=== PATIENT | female | born 1960 | race Caucasian/White ===

== ENCOUNTER 2017-11-22 14:52 | Emergency (ER) | payer BC ==
[~2017-11-22] VITALS: Ht 167.6 cm; Wt 79.4 kg
[~2017-11-22 14:52] MED LIST: ALBU3IS; ALBU3IS INH; ALPR1; AMLO5 PO; BECLNI16.8; BENTYL10 MG; BUDE6HFA PO; CALCIT950 PO; CHOL10002 PO; CRESEMBA186 MG PO; CYCL0.05OP; CYCL25 PO; Cinnamon500 MG; DHEA PO; Dazidox10 MG PO; FOLI1 PO; HYDMOR2 PO; IODINE PO; LAMI150 PO; LEVO750 PO; METF500 PO; METO25ER; MULVITMIND PO; Mucinex600 MG PO; NYST100SU SS; ONDA4ODT MM; OXYACE5T PO; OXYC1TAB11 PO; OXYC5; PARO20; PRED10; PRED10 PO; PROM25 PO; Percocet 5-3251 EACH PO; Prilosec Otc20 MG; THYR60 PO; UBID100 PO; URSO300; WILD YAM PO; Zofran Odt4 MG PO; Zofran Odt4 MG SL
[2017-11-22 15:32] LABS: BASOPHILS ABSOLUTE AUTO 0.03 K/mm3 (0.00-0.23); BASOPHILS PERCENT AUTO 0 % (0-2); EOSINOPHILS ABSOLUTE AUTO 0.16 K/mm3 (0.00-0.68); EOSINOPHILS PERCENT AUTO 1 % (0-6); Hematocrit 45.2 % (33.0-51.0); Hemoglobin 14.8 g/dL (11.5-16.0); IMMATURE GRAN ABSOLUTE AUTO 0.17 K/mm3 (0.00-0.10); IMMATURE GRAN PERCENT AUTO 1 % (0-1); LYMPHOCYTES ABSOLUTE AUTO 1.88 K/mm3 (0.84-5.20); LYMPHOCYTES PERCENT AUTO 8 % (21-46); MONOCYTES ABSOLUTE AUTO 1.93 K/mm3 (0.16-1.47); MONOCYTES PERCENT AUTO 8 % (4-13); Mean Corpuscular HGB 31.7 pg (26.0-34.0); Mean Corpuscular HGB Conc 32.7 g/dL (31.5-36.5); Mean Corpuscular Volume 97 fL (80-100); Mean Platelet Volume 10.3 fL (9.1-12.4); NEUTROPHILS ABSOLUTE AUTO 19.07 K/mm3 (1.96-9.15); NEUTROPHILS PERCENT AUTO 82 % (41-73); Platelet Count 239 K/mm3 (150-400); RDW Coefficient Variation 16.7 % (11.7-14.2); Red Blood Cell Count 4.67 M/mm3 (3.80-5.20); White Blood Cell Count 23.24 K/mm3 (4.00-11.30)
[2017-11-22 15:48] LABS: Albumin, Blood 2.7 g/dL (3.4-5.0); Albumin/Globulin Ratio 0.8 (0.8-1.8); Bilirubin, Total 1.5 mg/dL (0.1-1.0); Bun/Creatinine Ratio 30.1 (12.0-20.0); Calcium, Blood 8.3 mg/dL (8.5-10.1); Creatinine, Blood 1.03 mg/dL (0.40-1.00); Globulin, Blood 3.2 g/dL (2.2-4.0); Potassium, Blood 4.6 mmol/L (3.5-5.5); Total Protein, Blood 5.9 g/dL (6.4-8.2)
[2017-11-22] MEDS ORDERED: NOXAFIL100 MG PO (16:10)
[2017-11-22] MEDS ORDERED: CEFD300 PO (16:10)
[2017-11-22] MEDS ORDERED: SULFATRIM 800-120 ML PO (16:10)
[2017-11-22] MEDS ORDERED: Roxicodone5 MG PO (17:42)
[2017-11-22 18:42] LABS: Source, Urine Clean Catch
[2017-11-22 18:46] LABS: Bilirubin, Urine Neg (Neg); Blood, Urine 1+ (Neg); Glucose Qualitative, Urine 4+ (Neg); Ketones, Urine Neg (Neg); Leukocyte Esterase, Urine Neg (Neg); Nitrite, Urine Neg (Neg); Protein, Urine 1+ (Neg); Urobilinogen, Urine NORM (Normal)
[2017-11-22 19:22] LABS: Appearance, Urine Clear (Clear); Color, Urine Yellow (P-Yellow)
[2017-11-22 19:25] LABS: White Blood Cells, Urine Not Seen /hpf (0-5)
[2017-11-22 19:26] LABS: Bacteria Not Seen /hpf; Red Blood Cells, Urine 0-2 /hpf (0-2); Squamous Epithelial Cells Few /hpf (Few)
== END 2017-11-22 18:43 | disposition home or self-care (01) ==
LOC: ER 14:52
PROVIDERS: Emergency Medicine
DX: J06.9 Acute upper respiratory infection, unspecified (principal); E86.0 Dehydration; R30.0 Dysuria; C95.90 Leukemia, unspecified not having achieved remission; Z85.3 Personal history of malignant neoplasm of breast; Z90.12 Acquired absence of left breast and nipple; Z79.899 Other long term (current) drug therapy; Z79.82 Long term (current) use of aspirin
CPT/HCPCS: 36415; 71046; 80053; 81001; 85025; 93005; 93010; 96360; 96361; 99283; J7030

== ENCOUNTER 2018-12-02 09:36 | Inpatient (IN) | payer BC ==
[~2018-12-02] VITALS: Ht 167.6 cm; Wt 92.3 kg
[~2018-12-02 09:36] MED LIST changes: +CEFD300 PO; +NOXAFIL100 MG PO; +Roxicodone5 MG PO; +SULFATRIM 800-120 ML PO
[2018-12-02 11:06] LABS: Hematocrit 53.9 % (33.0-51.0); Hemoglobin 16.9 g/dL (11.5-16.0); Mean Corpuscular HGB 33.5 pg (26.0-34.0); Mean Corpuscular HGB Conc 31.4 g/dL (31.5-36.5); Mean Platelet Volume 9.6 fL (9.1-12.4); Platelet Count 268 K/mm3 (150-400); RDW Coefficient Variation 14.7 % (11.7-14.2); RDW Standard Deviation 58.9 fL (35.1-46.3); Red Blood Cell Count 5.05 M/mm3 (3.80-5.20); White Blood Cell Count 17.71 K/mm3 (4.00-11.30)
[2018-12-02 11:11] LABS: Mean Corpuscular Volume 107 fL (80-100)
[2018-12-02 11:15] LABS: Troponin I 0.172 ng/mL (0.000-0.040)
[2018-12-02 11:27] LABS: BAND PERCENT MAN 1 % (0-8); BASOPHILS PERCENT MAN 0 % (0-2); EOSINOPHILS ABSOLUTE MAN 0.35 K/mm3 (0.00-0.68); EOSINOPHILS PERCENT MAN 2 % (0-6); LYMPHOCYTES % ATYPICAL MANUAL 8 % (0-0); LYMPHOCYTES ABSOLUTE MAN 5.31 K/mm3 (0.84-5.20); LYMPHOCYTES PERCENT MAN 22 % (21-46); MONOCYTES ABSOLUTE MAN 2.65 K/mm3 (0.16-1.47); MONOCYTES PERCENT MAN 15 % (4-13); NEUTROPHILS ABSOLUTE MAN 9.38 K/mm3 (1.96-9.15); SEG NEUTROPHILS PERCENT MAN 52 % (41-73); TOTAL CELLS COUNTED 100
[2018-12-02 11:41] LABS: Albumin, Blood 2.8 g/dL (3.4-5.0); Albumin/Globulin Ratio 0.8 (0.8-1.8); Bilirubin, Total 0.5 mg/dL (0.1-1.0); Bun/Creatinine Ratio 29.9 (12.0-20.0); Calcium, Blood 8.6 mg/dL (8.5-10.1); Creatinine, Blood 1.07 mg/dL (0.40-1.00); Globulin, Blood 3.6 g/dL (2.2-4.0); Potassium, Blood 4.2 mmol/L (3.5-5.5); Total Protein, Blood 6.4 g/dL (6.4-8.2)
[2018-12-02 11:49] LABS: International Normalized Ratio 0.93; Prothrombin Time Results 9.9 Sec (9.7-11.5)
--- NOTE | 2018-12-02 20:02 | NUR ---
ADMIT NOTE/SHIFT SUMMARY RECEIVED REPORT FROM ALLISON LEE RN IN ED. PT TO ROOM AT 1346 VIA GURNEY, SBA TO BED. PT ORIENTED TO ROOM AND CALL LIGHT SYSTEM. PT EDUCATED ON FALL RISK AND NEED TO CALL FOR ASSISTANCE. BED IN LOW, CALL LIGHT IN REACH AND BED ALARM ON. PT REPORTS CHEST PAIN STARTED YESTERDAY EVENING WITH PAIN RADIATING TO JAW AND ARMS WITH SOB. PT HAS HX OF BREAST CANCER, LEUKEMIA AND BONE MARROW TRANSPLANT. PT REPORTS RASH/RED AREA GRAFT VS HOST REACTION/DISEASE. PT A&OX4, CALM AND COOPERATIVE WITH CARE. PT RESTING IN BED, SBA TO BATHROOM WITH POLE. PT ON RA, DENIES SOB ON ADMISSION. PT DENIES CHEST PAIN. HR ELEVATED, SINUS TACH IN TELE. ELEVATED TROP NOTED. BP RIGHT ARM ONLY. PT REPORTS HEADACHE AND BILATERAL ARM PAIN, MEDICATED PER EMAR WITH POSITIVE RESULTS. RECTAL SWAB COLLECTED PER PROTOCOL TO CLEAR FROM ISO FOR MDRO IN SPUTUM. NS START AT 100ML/HR PER ORDERS. OTHER VSS. NO OTHER ACUTE CHANGES NOTED DURING SHIFT. REPORT GIVEN TO ONCOMING RN.
--- NOTE | 2018-12-02 20:13 | NUR ---
LATE ENTRY 1640 PT REPORTS HEADACHE AND BILATERAL ARM PAIN, DR SHAH NOTIFIED, NEW ORDERS FOR HOME OXYCODINE 5-10 MG Q4H PRN FOR PAIN AND PT OK TO HAVE REGULAR DIET THIS EVENING AND BREAKFAST, NPO FOR STRESS TESTAFTER BREAKFAST.
[2018-12-02] MEDS ORDERED: AMIT25 PO (21:42)
[2018-12-02] MEDS ORDERED: ZOLP10 PO (21:43)
[2018-12-03 02:56] LABS: BASOPHILS ABSOLUTE AUTO 0.03 K/mm3 (0.00-0.23); BASOPHILS PERCENT AUTO 0 % (0-2); EOSINOPHILS ABSOLUTE AUTO 0.23 K/mm3 (0.00-0.68); EOSINOPHILS PERCENT AUTO 2 % (0-6); Hematocrit 47.4 % (33.0-51.0); IMMATURE GRAN ABSOLUTE AUTO 0.05 K/mm3 (0.00-0.10); IMMATURE GRAN PERCENT AUTO 1 % (0-1); LYMPHOCYTES ABSOLUTE AUTO 2.63 K/mm3 (0.84-5.20); LYMPHOCYTES PERCENT AUTO 24 % (21-46); MONOCYTES ABSOLUTE AUTO 1.36 K/mm3 (0.16-1.47); MONOCYTES PERCENT AUTO 12 % (4-13); Mean Corpuscular HGB 33.2 pg (26.0-34.0); Mean Corpuscular HGB Conc 31.6 g/dL (31.5-36.5); Mean Corpuscular Volume 105 fL (80-100); Mean Platelet Volume 9.4 fL (9.1-12.4); NEUTROPHILS ABSOLUTE AUTO 6.69 K/mm3 (1.96-9.15); NEUTROPHILS PERCENT AUTO 61 % (41-73); Platelet Count 219 K/mm3 (150-400); RDW Coefficient Variation 14.6 % (11.7-14.2); RDW Standard Deviation 57.1 fL (35.1-46.3); Red Blood Cell Count 4.52 M/mm3 (3.80-5.20); White Blood Cell Count 10.99 K/mm3 (4.00-11.30)
[2018-12-03 03:20] LABS: Anion Gap 9 mmol/L (6-16); Blood Urea Nitrogen 21 mg/dL (8-24); Bun/Creatinine Ratio 21.1 (12.0-20.0); CO2, Blood 26 mmol/L (21-32); Calcium, Blood 7.7 mg/dL (8.5-10.1); Chloride, Blood 104 mmol/L (98-108); Cholesterol 257 mg/dL (50-200); Glomerular Filtration Rate >60 (60-); Glucose, Blood 133 mg/dL (70-99); Potassium, Blood 3.8 mmol/L (3.5-5.5); Sodium, Blood 139 mmol/L (136-145); Troponin I 0.185 ng/mL (0.000-0.040)
[2018-12-03 03:26] LABS: CHOL/HDL RATIO Unable to Calculate; LDL/HDL RATIO Unable to Calculate; Low Density Lipoprotein Chol Unable to Calculate mg/dL (0-110); Triglycerides 1619 mg/dL (30-160); Very Low Density Lipoprot Chol Unable to Calculate mg/dL (6-32)
--- NOTE | 2018-12-03 04:10 | NUR ---
SHIFT SUMMARY PT LYING FOWLERS DURING SHIFT REPORT, VISITING WITH FAMILY. PT ADMITTED FOR CP AND CANCER. PER REPORT, PT C/O BACK PAIN RADIATING TO JAW AND DOWN BOTH ARMS; POSSIBLE REACTION TO BONE MARROW TX. TROPONIN'S SLIGHTLY ELEVATED, BUT TRENDING DOWN THIS AM. STRESS TEST TODAY, PT TO BE NPO AFTER BREAKFAST. IVF'S INFUSING PER EMAR. PT TO CALL FOR NEEDS; SBA TO BTHRM TO VOID. MEDICATED PER EMAR FOR C/O PAIN. C/O NAUSEA AT START OF SHIFT. RESOLVED WITH ZOFRAN. DENIED FURTHER NEEDS. CALL LT IN REACH.
--- NOTE | 2018-12-03 07:09 | NUR ---
Patient and family gave permission for me (nursing scheduler) to help with care today 12-03-18.
[2018-12-03] MEDS ORDERED: FOLI1 PO (12:16)
[2018-12-03] MEDS ORDERED: Bactrim Ds Tab1 EACH PO (12:17)
[2018-12-03] MEDS ORDERED: PARO20 PO (12:18)
[2018-12-03] MEDS ORDERED: ACYC800 PO (12:19)
[2018-12-03] MEDS ORDERED: Cinnamon500 MG PO (12:20)
[2018-12-03] MEDS ORDERED: Fish Oil 10001000 MG PO (12:20)
[2018-12-03] MEDS ORDERED: ZINC15 PO (12:20)
--- NOTE | 2018-12-03 12:30 | NUR ---
This PT gave me permission to assist with their care on 12/04/2018.
--- NOTE | 2018-12-03 17:55 | NUR ---
SHIFT SUMMARY PT A&Ox4. CALM AND COOPERATIVE WITH CARE, AT TIMES PT IS ANXIOUS. PT RESTING IN BED, CALLS FOR ASSIST WITH SBA TO BATHROOM. PT REPORTS HEADACHE AND PAIN "EVERYWHERE", MEDICATED PER EMAR WITH POSITIVE RESULTS. PT NAUSEAS AND HAD 2 EPISODES OF GREEN EMESIS, DR SHAH NOTIFIED, MEDICATED X2 WITH ZOFRAN WITH POSITIVE WITH RESULTS. PT DENIES SOB. NEW DIAGNOSIS OF DIABETES, DR SHAH DISCUSSED WITH PATIENT, THIS RN CONTINUED TO EDUCATE PT AND PROVIDE SUPPORT. PT STARTED ON LOW SLIDING SCALE INSULIN WITH GLUCOSE CHECKS AC/HS, NO COVERAGE DURING SHIFT. VSS. NO OTHER ACUTE CHANGES NOTED DURING SHIFT. WILL CONTINUE TO MONITOR UNTIL REPORT GIVEN TO ONCOMING RN.
--- NOTE | 2018-12-04 04:04 | NUR ---
PT NPO AT [facility]. 2ND PART OF STRESS TEST TO BE DONE THIS AM. NO C/O CP SOB. PAIN MEDICATED PER EMAR. PT SLEPT THROUGH THE NIGHT. CALL LIGHT IN REACH
--- NOTE | 2018-12-04 18:37 | NUR ---
PT DISCHARGED VIA W/C POV WITH FRIEND AGAINST MEDICAL ADVICE. DR. SHAH AWARE OF PATIENT LEAVING AMA. PT ENCOURAGED TO STAY TO CONTINUE MEDICAL TREATMENT BUT REFUSED. IV DISCONTINUED INTACT. DR. SHAH FAXED NEW MEDICATION (DILTIAZEM) TO PT'S STATED PHARMACY.
--- NOTE | 2018-12-05 03:09 | NUR ---
I appologized to pt about the two hour over rounds, told her i made a mistake. she hopefully feels more rested
--- NOTE | 2018-12-05 07:29 | NUR ---
SHIFT SUMMARY A/O C/O PAIN IN LEGS AND MEDICATED PER EMAR. DENIED N/V. DENIED CP. INDEPENDENT TO BA. SHE WAS ABLE TO GET SOME SLEEP T/O NOC. FRIEND WITH HER AT BEDSIDE T/O NOC. CALL LIGHT IN REACH
--- NOTE | 2018-12-05 07:54 | NUR ---
ASSUMED CARE OF PT- BEDSIDE REPORT COMPLETE WITH NIGHT JESSICA DE LA GARZA, NO ORDER FOR CARDIOLOGY CONSULT IN THE CHART, SPOKE TO DR SHAH, PLACED THE ORDER AND CALLED CONSULT. PT ISOLATION R/O LAST NIGHT PER REPORT FROM NIGHT JESSICA DE LA GARZA. PT PLANNS TO TAKE A SHOWER FIRST THING; FAMILY PRESENT FOR BEDSIDE REPORT; PT ALERT, ORIENTED AND INDEPENDENT IN THE ROOM.
[2018-12-05 11:04] LABS: Cholesterol 294 mg/dL (50-200); Triglycerides 635 mg/dL (30-160)
--- NOTE | 2018-12-05 15:22 | NUR ---
*LATE ENTRY* PT SENT TO HC FOR ANGIO WILL TRANSFER TO PCU POST ANGIOGRAM. SPOKE TO PHYSICIAN UNDERWRITER KETTY NO FURTHER QUESTIONS AT THIS TIME.
--- NOTE | 2018-12-05 17:50 | NUR ---
NURSING PCU DAYSHIFT SUMMARY: Assumed care of pt at approx 1330. Arrived from via bed accompanied by family and staff x2. Pt and family oriented to unit. R radial site w/TR band and wrist board in place. TR band recovered as per protocol, site remained stable w/no s/s of bleed or hematoma. Respiratory and cardiac status stable. Pt has ambulated in room w/o difficulty. Call light in reach, anticpating possible discharge home tomorrow. Pt/family deny any current needs or questions regarding plan of care, cont to monitor until rpt is given to NOC RN.
[2018-12-06 04:21] LABS: BASOPHILS ABSOLUTE AUTO 0.02 K/mm3 (0.00-0.23); BASOPHILS PERCENT AUTO 0 % (0-2); EOSINOPHILS ABSOLUTE AUTO 0.11 K/mm3 (0.00-0.68); EOSINOPHILS PERCENT AUTO 1 % (0-6); Hematocrit 45.5 % (33.0-51.0); Hemoglobin 14.5 g/dL (11.5-16.0); IMMATURE GRAN ABSOLUTE AUTO 0.01 K/mm3 (0.00-0.10); IMMATURE GRAN PERCENT AUTO 0 % (0-1); LYMPHOCYTES ABSOLUTE AUTO 2.37 K/mm3 (0.84-5.20); LYMPHOCYTES PERCENT AUTO 31 % (21-46); MONOCYTES ABSOLUTE AUTO 1.14 K/mm3 (0.16-1.47); MONOCYTES PERCENT AUTO 15 % (4-13); Mean Corpuscular HGB Conc 31.9 g/dL (31.5-36.5); Mean Corpuscular Volume 103 fL (80-100); Mean Platelet Volume 9.4 fL (9.1-12.4); NEUTROPHILS PERCENT AUTO 53 % (41-73); Platelet Count 255 K/mm3 (150-400); RDW Coefficient Variation 14.5 % (11.7-14.2); RDW Standard Deviation 55.3 fL (35.1-46.3); White Blood Cell Count 7.75 K/mm3 (4.00-11.30)
[2018-12-06 04:39] LABS: Bun/Creatinine Ratio 13.9 (12.0-20.0); Creatinine, Blood 1.08 mg/dL (0.40-1.00); Potassium, Blood 3.9 mmol/L (3.5-5.5)
--- NOTE | 2018-12-06 07:32 | NUR ---
SHIFT SUMMARY PATIENT PLEASENT AND COOPERATIVE THROUGHOUT THE NIGHT. PATIENT APPEARED TO SLEEP WELL LAST NIGHT. PATIENT'S RIGHT WRIST TR SITE HAS NO SIGNS OF BLEEDING OR HEMATOMA FORMATION. HOWEVER, PATIENT CONTINUES TO HAVE A BRUISE ON THE BACK OF HER RIGHT FORARM AND SOME SWELLING. ARMBOARD IN PLACE. PATIENT EDUCATED ON POST ANGIO ACTIVITY AND MOVEMENT RESTRICTIONS. FRIEND STAYED THE NIGHT AT THE BEDSIDE. PATIENT CURRRENTLY DENIES ANY NEEDS. REPORT GIVEN TO ONCOMING RN.
--- NOTE | 2018-12-06 09:00 | NUR ---
PT PLEASANT COOP A/O STATES READY GO HOME. SO0ME PAIN ON LEGS. USUALLY TAKES OXY 10'S. MED PER EMAR. H/R REG, NO MURMER NOTED. PER TELE: NSR AT 80. LUNGS CLEAR, RESP EASY, UNLABORED. ON R/A. BT HYPO. STATES LAST BM 5 DAYS. STARTED YEST ON MYRALAX. FEELS TODAY LIKELY. VOIDS PER BATHROOM. BED IN LOW POSITION, CALL LITE IN REACH CALLS APROP. RT ARM SOME SWOLLEN ON OUTSIDE. INSIDE ON RADIAL SIDE CDI. NO BLEEDIING, REDNESS, BLEEDING. LIGHTLY PAINFUL. DR ACEVES WAS NOTIFIED AND SAW PT. STATES WILL D/C.
[2018-12-06] MEDS ORDERED: ACET325 PO (12:58)
[2018-12-06] MEDS ORDERED: Aspir 8181 MG PO (12:58)
[2018-12-06] MEDS ORDERED: ATOR40TA PO (12:59)
[2018-12-06] MEDS ORDERED: FENO67 PO (13:00)
[2018-12-06] MEDS ORDERED: METO25 PO (13:01)
--- NOTE | 2018-12-06 14:25 | NUR ---
DISCHARGE REVIEWED WITH PT AND SISTER. MEDS AND INSTRUCTIONS VERBALIZED UNDERSTANDING. DISCUSSED RADIAL SITE CARE. PT SIGNED FORMS. IV PULLED INTACT, TELE REMOVED. TRANPORT OUT DOOR AT 1420
== END 2018-12-06 14:35 | disposition home or self-care (01) | DRG 280 ==
LOC: ER 09:36 → MEDS 09:37 → PCU 13:40 → MEDS 13:50 → PCU 12-05 13:50
PROVIDERS: Emergency Medicine; Internal Medicine Cardiovascular Disease; ADMIT Student in an Organized Health Care Education/Training Program
PROC: B2111ZZ Fluoroscopy of Multiple Coronary Arteries using Low Osmolar Contrast (ICD-10-PCS; principal; 2018-12-05)
DX: I25.10 Atherosclerotic heart disease of native coronary artery without angina pectoris (principal); I21.4 Non-ST elevation (NSTEMI) myocardial infarction; K85.90 Acute pancreatitis without necrosis or infection, unspecified; Z94.81 Bone marrow transplant status; C95.90 Leukemia, unspecified not having achieved remission; Z87.891 Personal history of nicotine dependence; G89.29 Other chronic pain; D75.1 Secondary polycythemia; E78.1 Pure hyperglyceridemia; Z79.84 Long term (current) use of oral hypoglycemic drugs; E78.5 Hyperlipidemia, unspecified; E78.2 Mixed hyperlipidemia; E78.00 Pure hypercholesterolemia, unspecified; N18.3 Chronic kidney disease, stage 3 (moderate); I12.9 Hypertensive chronic kidney disease with stage 1 through stage 4 chronic kidney disease, or unspecified chronic kidney disease; R74.8 Abnormal levels of other serum enzymes; E09.65 Drug or chemical induced diabetes mellitus with hyperglycemia; Z79.52 Long term (current) use of systemic steroids; D75.89 Other specified diseases of blood and blood-forming organs; E09.22 Drug or chemical induced diabetes mellitus with diabetic chronic kidney disease
CPT/HCPCS: 36415; 36416; 71045; 71260; 78452; 80048; 80053; 80061; 82465; 82947; 83036; 83690; 84478; 84484; 85025; 85610; 87081; 93005; 93010; 93017; 93306; 93458; 96374-59; 96375-59; 99152; 99153; 99285-25; A9500; C1769; C1894; J0706; J1170; J1644; J1650; J1815; J2250; J2405; J2785; J3010; J7030; Q9967

== ENCOUNTER 2019-01-26 16:04 | Inpatient (IN) | payer BC ==
[~2019-01-26] VITALS: Ht 167.6 cm; Wt 82.1 kg
[~2019-01-26 16:04] MED LIST changes: +ACET325 PO; +ACYC800 PO; +AMIT25 PO; +ATOR40TA PO; +Aspir 8181 MG PO; +Bactrim Ds Tab1 EACH PO; +Cinnamon500 MG PO; +FENO67 PO; +Fish Oil 10001000 MG PO; +METO25 PO; +PARO20 PO; +ZINC15 PO; +ZOLP10 PO
[2019-01-26 17:13] LABS: BASOPHILS ABSOLUTE AUTO 0.04 K/mm3 (0.00-0.23); BASOPHILS PERCENT AUTO 0 % (0-2); EOSINOPHILS ABSOLUTE AUTO 0.32 K/mm3 (0.00-0.68); EOSINOPHILS PERCENT AUTO 2 % (0-6); Hematocrit 54.7 % (33.0-51.0); Hemoglobin 17.8 g/dL (11.5-16.0); IMMATURE GRAN PERCENT AUTO 1 % (0-1); LYMPHOCYTES ABSOLUTE AUTO 5.99 K/mm3 (0.84-5.20); LYMPHOCYTES PERCENT AUTO 32 % (21-46); MONOCYTES ABSOLUTE AUTO 2.63 K/mm3 (0.16-1.47); MONOCYTES PERCENT AUTO 14 % (4-13); Mean Corpuscular HGB 32.4 pg (26.0-34.0); Mean Corpuscular HGB Conc 32.5 g/dL (31.5-36.5); Mean Corpuscular Volume 100 fL (80-100); Mean Platelet Volume 9.5 fL (9.1-12.4); NEUTROPHILS ABSOLUTE AUTO 9.59 K/mm3 (1.96-9.15); NEUTROPHILS PERCENT AUTO 51 % (41-73); Platelet Count 321 K/mm3 (150-400); RDW Coefficient Variation 14.5 % (11.7-14.2); RDW Standard Deviation 52.8 fL (35.1-46.3); White Blood Cell Count 18.67 K/mm3 (4.00-11.30)
[2019-01-26 17:30] LABS: Alanine Aminotransfer (ALT/SGP 57 U/L (12-78); Albumin, Blood 3.1 g/dL (3.4-5.0); Albumin/Globulin Ratio 0.9 (0.8-1.8); Alk Phos 113 U/L (50-136); Anion Gap 9 mmol/L (6-16); Aspartate Aminotrans (AST/SGOT 49 U/L (12-37); Bilirubin, Total 0.4 mg/dL (0.1-1.0); Blood Urea Nitrogen 35 mg/dL (8-24); CO2, Blood 24 mmol/L (21-32); Calcium, Blood 8.7 mg/dL (8.5-10.1); Chloride, Blood 105 mmol/L (98-108); Creatinine, Blood 1.06 mg/dL (0.40-1.00); Globulin, Blood 3.3 g/dL (2.2-4.0); Glomerular Filtration Rate 57 (60-); Glucose, Blood 217 mg/dL (70-99); Potassium, Blood 3.7 mmol/L (3.5-5.5); Sodium, Blood 138 mmol/L (136-145); Total Protein, Blood 6.4 g/dL (6.4-8.2); Troponin I <0.015 ng/mL (0.000-0.040)
[2019-01-26 20:57] LABS: Influenza A Negative (NEGATIVE); Influenza B Negative (NEGATIVE)
--- NOTE | 2019-01-26 22:55 | NUR ---
transfer report from JESSICA Miguel in ER on PT who finished outpt oral therapy for pneumonia ans still is weak and short of breath. will admit with tele monitor and continue antibiotic therapy to treat pneumonia. hx of breast cancer.
[2019-01-26 23:14] LABS: Source, Urine Clean Catch
[2019-01-26 23:17] LABS: Bilirubin, Urine Neg (Neg); Blood, Urine Neg (Neg); Glucose Qualitative, Urine Neg (Neg); Ketones, Urine Neg (Neg); Leukocyte Esterase, Urine 2+ (Neg); Nitrite, Urine Neg (Neg); Protein, Urine 2+ (Neg); Specific Gravity, Urine 1.025 (1.003-1.022); Urobilinogen, Urine NORM (Normal)
[2019-01-26 23:21] LABS: Appearance, Urine Clear (Clear); Color, Urine Yellow (P-Yellow)
[2019-01-26 23:23] LABS: Bacteria Mod /hpf; Red Blood Cells, Urine 0-2 /hpf (0-2); Squamous Epithelial Cells Few /hpf (Few)
--- NOTE | 2019-01-26 23:24 | NUR ---
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 full code. advanced directive material provided.
[2019-01-27 04:23] LABS: BASOPHILS ABSOLUTE AUTO 0.06 K/mm3 (0.00-0.23); BASOPHILS PERCENT AUTO 0 % (0-2); EOSINOPHILS ABSOLUTE AUTO 0.26 K/mm3 (0.00-0.68); EOSINOPHILS PERCENT AUTO 2 % (0-6); Hemoglobin 16.5 g/dL (11.5-16.0); IMMATURE GRAN ABSOLUTE AUTO 0.07 K/mm3 (0.00-0.10); IMMATURE GRAN PERCENT AUTO 1 % (0-1); LYMPHOCYTES ABSOLUTE AUTO 2.41 K/mm3 (0.84-5.20); LYMPHOCYTES PERCENT AUTO 17 % (21-46); MONOCYTES ABSOLUTE AUTO 2.27 K/mm3 (0.16-1.47); MONOCYTES PERCENT AUTO 16 % (4-13); Mean Corpuscular HGB 32.4 pg (26.0-34.0); Mean Corpuscular HGB Conc 29.8 g/dL (31.5-36.5); Mean Platelet Volume 9.5 fL (9.1-12.4); NEUTROPHILS ABSOLUTE AUTO 9.19 K/mm3 (1.96-9.15); NEUTROPHILS PERCENT AUTO 65 % (41-73); Platelet Count 256 K/mm3 (150-400); RDW Coefficient Variation 14.5 % (11.7-14.2); RDW Standard Deviation 59.2 fL (35.1-46.3); White Blood Cell Count 14.26 K/mm3 (4.00-11.30)
[2019-01-27 04:26] LABS: Hematocrit 55.3 % (33.0-51.0); Mean Corpuscular Volume 108 fL (80-100)
[2019-01-27 04:41] LABS: Alanine Aminotransfer (ALT/SGP 50 U/L (12-78); Albumin, Blood 2.5 g/dL (3.4-5.0); Albumin/Globulin Ratio 0.9 (0.8-1.8); Alk Phos 103 U/L (50-136); Anion Gap 9 mmol/L (6-16); Aspartate Aminotrans (AST/SGOT 47 U/L (12-37); Bilirubin, Total 0.4 mg/dL (0.1-1.0); Blood Urea Nitrogen 28 mg/dL (8-24); CO2, Blood 21 mmol/L (21-32); Chloride, Blood 109 mmol/L (98-108); Globulin, Blood 2.8 g/dL (2.2-4.0); Glomerular Filtration Rate >60 (60-); Glucose, Blood 139 mg/dL (70-99); Sodium, Blood 139 mmol/L (136-145); Total Protein, Blood 5.3 g/dL (6.4-8.2)
--- NOTE | 2019-01-27 16:28 | NUR ---
Spiritual care visit conducted. Patient was sleeping when I entered the patient's room but quickly awoke to the sound of her name. Therapeutic alliance was easily established and so patient openly shared about her battles with cancer, her family and her javon. I allowed much space for her to tell her story, explored her javon traditions, looked at her coping skills and resources, provided pastoral counseling services director, companionship and prayer. Patient responded well and stated that the visit impacted her in a positive way and that it helped restore javon and hope for her. Patient expressed gratitude for the visit.
--- NOTE | 2019-01-27 17:18 | NUR ---
PT A/OX3, PLEASANT AND COOPERATIVE, UP WITH MINIMAL ASSIST , THE PT APPEARS TO BE BREATHING EASILY ON RA AT THIS TIME THE PT TODAY WAS MEDCATED FOR LEG PAIN X1, THE PT WAS MEDICATED FOR N/V TODAY X2, THE PT HAD PINK COLORED EMISIS NOTICED TODAY, PHYSICAL THERAPIST WORKED WITH THE PT TODAY AND THE PT IS NOW UP INTO THE CHAIR AT THE BEDSIDE, FAMILY IS WITH THE PT AT THIS TIME, CALL LIGHT IN REACH, WILL CONTINUE TO MONITOR AND ASSESS FOR CHANGES
[2019-01-28 05:17] LABS: BASOPHILS ABSOLUTE AUTO 0.03 K/mm3 (0.00-0.23); BASOPHILS PERCENT AUTO 0 % (0-2); EOSINOPHILS ABSOLUTE AUTO 0.18 K/mm3 (0.00-0.68); EOSINOPHILS PERCENT AUTO 2 % (0-6); Hematocrit 52.3 % (33.0-51.0); Hemoglobin 16.3 g/dL (11.5-16.0); IMMATURE GRAN ABSOLUTE AUTO 0.05 K/mm3 (0.00-0.10); IMMATURE GRAN PERCENT AUTO 1 % (0-1); LYMPHOCYTES ABSOLUTE AUTO 2.69 K/mm3 (0.84-5.20); LYMPHOCYTES PERCENT AUTO 27 % (21-46); MONOCYTES ABSOLUTE AUTO 1.68 K/mm3 (0.16-1.47); MONOCYTES PERCENT AUTO 17 % (4-13); Mean Corpuscular HGB 32.3 pg (26.0-34.0); Mean Corpuscular HGB Conc 31.2 g/dL (31.5-36.5); Mean Corpuscular Volume 104 fL (80-100); Mean Platelet Volume 9.7 fL (9.1-12.4); NEUTROPHILS ABSOLUTE AUTO 5.19 K/mm3 (1.96-9.15); NEUTROPHILS PERCENT AUTO 53 % (41-73); Platelet Count 234 K/mm3 (150-400); RDW Coefficient Variation 14.3 % (11.7-14.2); RDW Standard Deviation 55.3 fL (35.1-46.3); Red Blood Cell Count 5.04 M/mm3 (3.80-5.20); White Blood Cell Count 9.82 K/mm3 (4.00-11.30)
[2019-01-28 05:42] LABS: Anion Gap 7 mmol/L (6-16); Blood Urea Nitrogen 20 mg/dL (8-24); Bun/Creatinine Ratio 23.3 (12.0-20.0); CO2, Blood 22 mmol/L (21-32); Calcium, Blood 8.4 mg/dL (8.5-10.1); Chloride, Blood 110 mmol/L (98-108); Creatinine, Blood 0.86 mg/dL (0.40-1.00); Glomerular Filtration Rate >60 (60-); Glucose, Blood 101 mg/dL (70-99); Potassium, Blood 4.4 mmol/L (3.5-5.5); Sodium, Blood 139 mmol/L (136-145)
--- NOTE | 2019-01-28 06:38 | NUR ---
*SHIFT SUMMARY* PATIENT IS ALERT AND ORIENTED. HAD COMPLAINTS OF NAUSEA AT BEGINING OF SHIFT AND WAS MEDICATED. PT REPORTS NAUSEA DECREASED. PT ON TELE, SR AT 68. IV IN RIGHT HAND REMOVED FOR INFILTRATION. PATIENT IS INDEPENDENT IN ROOM TO BATHROOM. VITAL SIGNS STABLE. PT SLEPT WELL THROUGHOUT THE NIGHT.
--- NOTE | 2019-01-28 14:52 | NUR ---
Spiritual care visit conducted. 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 I listened empathically, highlighted her javon and courage, quoted inspirational scriptures, provided companionship and prayer. Patient, physical therapist, Tasha, and I prayed and patient expressed gratitude for the support and prayer.
--- NOTE | 2019-01-28 16:30 | NUR ---
PT IS A/OX3, PLEASANT AND COOPERATIVE, THE PT IS UP IND IN HER ROOM, TODAY THE PT WAS UP AND WALKED THROUGH THE PAK WITH THE PHYSICAL THERAPIST PT DENIED FEELING SOB WITH THE WALK, THE PT WAS MEDICATED FOR PAIN X2 SO FAR TODAY, MULTIPLE FAMIILY IN TO SEE THE PT TODAY, CALL LIGHT IN REACH, THE PT WAS ABLE TO EAT SOME TODAY, CALL LIGHT IN REACH, WILL CONTINUE TO MONITOR AND ASSESS FOR CHANGES
--- NOTE | 2019-01-29 07:18 | NUR ---
*SHIFT SUMMARY* PATIENT IS ALERT AND ORIENTED. PATIENT REQUESTED A PAIN PILL WITH HER SLEEPING PILL. PT SLEPT WELL THROUGHOUT THE NIGHT. NO NEW CHANGES IN STATUS. VITAL SIGNS STABLE.
--- NOTE | 2019-01-29 17:46 | NUR ---
PT IS A/OX3, PLEASNAT AND COOPERATIVE, THE PT IS UP IND IN HER ROOM, THE PT APPEARS TO BE BREATHING EASILY ON RA, THE PT WAS MEDICATED FOR BONE PAIN T/O THE DAY, THE PT DENIED N/V TODAY AND WAS ABLE TO EAT SOME, MULTIPLE FAMILY AT THE BEDSIDE, CALL LIGHT IN REACH, POSSIBLE DISCHARGE IN THE AM
--- NOTE | 2019-01-29 21:29 | NUR ---
PT STATES DOING FINE. JUST GETTING READY TO GO TO SLEEP. NO NEEDS AT THIS TIME. CALL LT IN REACH.
--- NOTE | 2019-01-30 04:48 | NUR ---
SHIFT SUMMARY: MEDICATED PT ONCE FOR BONE PAIN WITH FAIR RESULTS. PT ALSO REQUESTED AMBIEN TO HELP HER SLEEP. STATES THE STEROIDS THAT SHE TAKES IT'S HARD TO FALL ASLEEP. PT RESTED WELL T/O SHIFT. PT TALKED ABOUT THAT SHE HAD AMBULATED IN THE HALLS WITH HER FAMILY AND IT REALLY FELT GOOD DURING THE DAY AND THAT HER BREATHING IS MUCH BETTER. NO ACUTE CHANGES. WILL CONTINUE TO MONITOR AND PROVIDE CARE UNTIL SHIFT REPORT.
--- NOTE | 2019-01-30 11:28 | NUR ---
Spiritual care visit conducted. Patient was sleeping when I entered patient's room. Patient is warm and kind and openly shared about her struggles with her disease and her families struggles with her disease. In the conversation there were tears and laughter and signs of deep hope and fatih. As I listened and asked questions the patient inspired herself and I got to be a small part of it. I provided compaionship and prayer. Patient responded well and expressed gratitude for the visit.
--- NOTE | 2019-01-30 18:07 | NUR ---
PT IS AOX4 AND COOPERATIVE OF CARE. PT HAS BEEN IN BED ALL DAY, BUT IS INDEPENDENT IN ROOM. PT WAS UP AND VISITING IN EARLIER PART OF THE DAY THEN TOOK A LONG NAP. PT CALLS APPROPRIATELY. WILL CONTINUE TO MONITOR.
--- NOTE | 2019-01-31 04:17 | NUR ---
58 Y/O FEMALE SLEPT COMFORTABLY ALL EVENING. PT HAPPY AND COOPERATIVE. PTS BED IN LOW POSITION, CALL LIGHT AT SIDE.
[2019-01-31] MEDS ORDERED: GABA300 PO (11:30)
[2019-01-31] MEDS ORDERED: CEFP200 PO (11:32)
[2019-01-31] MEDS ORDERED: PROBIOTIC GOLD1 EACH PO (11:32)
--- NOTE | 2019-01-31 13:50 | NUR ---
SUMMARY/DISCHARGE PT BEING DISCHARGED TO HOME, PT VERBALIZED UNDERSTANDING OF DISCHARGE INSTRUCTIONS, FAMILIA LIAISON SPOKE WITH THE PT REGARDING FOLLOW UP, MEDS FAXED TO [facility] INTACT, PT CALLING HER DAUGHTER NOW
--- NOTE | 2019-01-31 14:40 | NUR ---
DISCHARGE PT'S DAUGHTER HERE TO GET HER, PT TAKEN OUT SAFELY VIA WHEELCHAIR
== END 2019-01-31 14:37 | disposition home or self-care (01) | DRG 871 ==
LOC: ER 16:04 → MEDS 22:10 → ENPENDDIS 01-31 11:00 → MEDS 01-31 14:37
PROVIDERS: Emergency Medicine; Internal Medicine; Physician Assistant; ADMIT Internal Medicine
DX: A41.9 Sepsis, unspecified organism (principal); J18.9 Pneumonia, unspecified organism; J96.01 Acute respiratory failure with hypoxia; D89.813 Graft-versus-host disease, unspecified; C95.90 Leukemia, unspecified not having achieved remission; Z94.81 Bone marrow transplant status; B37.0 Candidal stomatitis; G89.29 Other chronic pain; R65.20 Severe sepsis without septic shock; E11.22 Type 2 diabetes mellitus with diabetic chronic kidney disease; I25.10 Atherosclerotic heart disease of native coronary artery without angina pectoris; E78.2 Mixed hyperlipidemia; E78.1 Pure hyperglyceridemia; E78.00 Pure hypercholesterolemia, unspecified; N18.3 Chronic kidney disease, stage 3 (moderate); D75.89 Other specified diseases of blood and blood-forming organs; E86.0 Dehydration; T38.0X5A Adverse effect of glucocorticoids and synthetic analogues, initial encounter; F32.9 Major depressive disorder, single episode, unspecified; I25.2 Old myocardial infarction; Z85.3 Personal history of malignant neoplasm of breast; Z79.52 Long term (current) use of systemic steroids; Z79.82 Long term (current) use of aspirin; Z79.899 Other long term (current) drug therapy; Z87.891 Personal history of nicotine dependence
CPT/HCPCS: 36415; 71046; 71260; 80048; 80053; 81001; 82947; 83605; 83880; 84145; 84484; 85025; 87040; 87086; 87804; 93005; 93010; 96365-59; 96366-59; 96367-59; 96375-59; 97110; 97162; 97530; 99285-25; J0692; J0696; J1450; J1644; J1815; J2405; J3370; J7030; J7120; Q9967

== ENCOUNTER 2019-03-29 22:17 | Emergency (ER) | payer BC ==
[~2019-03-29] VITALS: Ht 167.6 cm; Wt 77.1 kg
[~2019-03-29 22:17] MED LIST changes: +ACYC200 PO; +ALBU90OI INH; +CEFP200 PO; +FENO48 PO; +GABA300 PO; +MONT10T PO; +OXYC5 PO; +PROBIOTIC GOLD1 EACH PO; +VORI200 PO; +Zithromax250 MG
[2019-03-29 23:15] LABS: BASOPHILS ABSOLUTE AUTO 0.03 K/mm3 (0.00-0.23); BASOPHILS PERCENT AUTO 0 % (0-2); EOSINOPHILS ABSOLUTE AUTO 0.01 K/mm3 (0.00-0.68); EOSINOPHILS PERCENT AUTO 0 % (0-6); Hematocrit 44.7 % (33.0-51.0); Hemoglobin 14.8 g/dL (11.5-16.0); IMMATURE GRAN PERCENT AUTO 3 % (0-1); LYMPHOCYTES ABSOLUTE AUTO 3.18 K/mm3 (0.84-5.20); LYMPHOCYTES PERCENT AUTO 26 % (21-46); MONOCYTES PERCENT AUTO 11 % (4-13); Mean Corpuscular HGB 33.9 pg (26.0-34.0); Mean Corpuscular HGB Conc 33.1 g/dL (31.5-36.5); Mean Corpuscular Volume 102 fL (80-100); Mean Platelet Volume 9.9 fL (9.1-12.4); NEUTROPHILS ABSOLUTE AUTO 7.26 K/mm3 (1.96-9.15); NEUTROPHILS PERCENT AUTO 60 % (41-73); NRBC ABSOLUTE 0.06 K/mm3 (0.00-0.02); NRBC Auto 0.5 /100 WBC (0.0-0.2); Platelet Count 285 K/mm3 (150-400); RDW Coefficient Variation 18.4 % (11.7-14.2); RDW Standard Deviation 68.3 fL (35.1-46.3); Red Blood Cell Count 4.37 M/mm3 (3.80-5.20); White Blood Cell Count 12.08 K/mm3 (4.00-11.30)
[2019-03-29] MEDS ORDERED: Humalog100 UNIT/1 (23:27)
[2019-03-29 23:36] LABS: Alanine Aminotransfer (ALT/SGP 55 U/L (12-78); Albumin, Blood 3.3 g/dL (3.4-5.0); Albumin/Globulin Ratio 1.2 (0.8-1.8); Alk Phos 70 U/L (50-136); Anion Gap 9 mmol/L (6-16); Aspartate Aminotrans (AST/SGOT 36 U/L (12-37); Bilirubin, Total 0.5 mg/dL (0.1-1.0); Blood Urea Nitrogen 29 mg/dL (8-24); CO2, Blood 26 mmol/L (21-32); Calcium, Blood 8.6 mg/dL (8.5-10.1); Chloride, Blood 105 mmol/L (98-108); Creatinine, Blood 0.81 mg/dL (0.40-1.00); Globulin, Blood 2.7 g/dL (2.2-4.0); Glomerular Filtration Rate >60 (60-); Glucose, Blood 171 mg/dL (70-99); Potassium, Blood 3.9 mmol/L (3.5-5.5); Sodium, Blood 140 mmol/L (136-145); Troponin I <0.015 ng/mL (0.000-0.040)
[2019-03-29 23:46] LABS: Source, Urine Clean Catch
[2019-03-29 23:49] LABS: Bilirubin, Urine Neg (Neg); Blood, Urine Neg (Neg); Glucose Qualitative, Urine 2+ (Neg); Ketones, Urine Neg (Neg); Leukocyte Esterase, Urine 1+ (Neg); Nitrite, Urine Neg (Neg); Protein, Urine Neg (Neg); Specific Gravity, Urine 1.005 (1.003-1.022); Urobilinogen, Urine NORM (Normal); pH, Urine 6.5 (5.0-8.0)
[2019-03-29 23:53] LABS: Appearance, Urine Clear (Clear); Color, Urine Pale Yellow (P-Yellow)
[2019-03-29 23:54] LABS: Red Blood Cells, Urine Not Seen /hpf (0-2); Squamous Epithelial Cells Rare /hpf (Few); White Blood Cells, Urine 0-2 /hpf (0-5)
[2019-03-29 23:55] LABS: Bacteria Rare /hpf
[2019-03-30] MEDS ORDERED: ONDA4ODT MM (00:32)
== END 2019-03-30 01:18 | disposition home or self-care (01) ==
LOC: ER 22:17
PROVIDERS: Emergency Medicine
DX: R73.9 Hyperglycemia, unspecified (principal); Z85.3 Personal history of malignant neoplasm of breast; Z79.899 Other long term (current) drug therapy; Z79.82 Long term (current) use of aspirin
CPT/HCPCS: 36415; 80053; 81001; 82947; 84484; 85025; 87086; 93005; 93010; 96360; 99283-25; A9270-GY; J7120

== ENCOUNTER → 2019-07-10 | Outpatient (CLI) | payer BC ==
[~2019-07-10] MED LIST changes: +Humalog100 UNIT/1
[2019-07-10 13:33] LABS: BASOPHILS ABSOLUTE AUTO 0.02 K/mm3 (0.00-0.23); BASOPHILS PERCENT AUTO 0 % (0-2); EOSINOPHILS PERCENT AUTO 0 % (0-6); Hematocrit 41.9 % (33.0-51.0); Hemoglobin 13.1 g/dL (11.5-16.0); IMMATURE GRAN ABSOLUTE AUTO 0.09 K/mm3 (0.00-0.10); IMMATURE GRAN PERCENT AUTO 1 % (0-1); LYMPHOCYTES ABSOLUTE AUTO 1.69 K/mm3 (0.84-5.20); LYMPHOCYTES PERCENT AUTO 12 % (21-46); MONOCYTES PERCENT AUTO 9 % (4-13); Mean Corpuscular HGB 35.1 pg (26.0-34.0); Mean Corpuscular HGB Conc 31.3 g/dL (31.5-36.5); Mean Corpuscular Volume 112 fL (80-100); NEUTROPHILS ABSOLUTE AUTO 11.25 K/mm3 (1.96-9.15); NEUTROPHILS PERCENT AUTO 78 % (41-73); Platelet Count 260 K/mm3 (150-400); RDW Coefficient Variation 14.2 % (11.7-14.2); Red Blood Cell Count 3.73 M/mm3 (3.80-5.20); White Blood Cell Count 14.35 K/mm3 (4.00-11.30)
[2019-07-10 13:54] LABS: Alanine Aminotransfer (ALT/SGP 41 U/L (12-78); Albumin, Blood 2.5 g/dL (3.4-5.0); Albumin/Globulin Ratio 0.9 (0.8-1.8); Alk Phos 217 U/L (50-136); Anion Gap 6 mmol/L (6-16); Aspartate Aminotrans (AST/SGOT 36 U/L (12-37); Bilirubin, Total 0.3 mg/dL (0.1-1.0); Blood Urea Nitrogen 17 mg/dL (8-24); Bun/Creatinine Ratio 25.5 (12.0-20.0); CO2, Blood 29 mmol/L (21-32); Calcium, Blood 8.5 mg/dL (8.5-10.1); Chloride, Blood 107 mmol/L (98-108); Creatinine, Blood 0.67 mg/dL (0.40-1.00); Globulin, Blood 2.9 g/dL (2.2-4.0); Glomerular Filtration Rate >60 (60-); Glucose, Blood 167 mg/dL (70-99); Sodium, Blood 142 mmol/L (136-145); Total Protein, Blood 5.4 g/dL (6.4-8.2)
== END ==
LOC: LAB 12:52 → LAB SHORT 12:52
PROVIDERS: Registered Nurse Oncology
DX: C91.00 Acute lymphoblastic leukemia not having achieved remission (principal)
CPT/HCPCS: 80053; 83880; 85025